=== PATIENT | male | born 1990 | race Hispanic/Latino ===

== ENCOUNTER 2017-11-18 10:47 | Emergency (ER) | payer BC, SELFPAY ==
[2017-11-18] MEDS ORDERED: Lidocaine 1% w/Epinephrine 1:100K 20 ML VIAL ONE (14:07)
[2017-11-18] MEDS ORDERED: Adacel (T-DAP) 0.5 ML VIAL ONE (14:55)
[2017-11-18] MEDS ORDERED: Lidocaine 1% PF 5 ML VIAL ONE (14:55)
[2017-11-18] MEDS ORDERED: cefTRIAXone\\ROCEPHIN 500 MG VIAL ONE (14:55)
== END 2017-11-18 15:11 | disposition home or self-care (01) ==
LOC: ERS 10:47
DX: L05.01 Pilonidal cyst with abscess (principal); J45.909 Unspecified asthma, uncomplicated; E78.00 Pure hypercholesterolemia, unspecified; F31.9 Bipolar disorder, unspecified; F20.9 Schizophrenia, unspecified; F17.210 Nicotine dependence, cigarettes, uncomplicated
CPT/HCPCS: 10081; 87070; 87205; 90471; 90715; 96372; J0696; J2001

== ENCOUNTER 2019-06-28 08:11 | Emergency (ER) | payer SELFPAY ==
--- NOTE | 2019-06-28 09:01 | RAD ---
XR Shoulder Rt 3 View STANDARD History: Right shoulder pain Comparison: None. Findings: No acute fracture or malalignment. Acromioclavicular alignment is normal. Visualized ribs a re intact. Impression: No acute osseous abnormality.
== END 2019-06-28 09:21 | disposition home or self-care (01) ==
LOC: ERS 08:11
DX: M75.91 Shoulder lesion, unspecified, right shoulder (principal); J45.909 Unspecified asthma, uncomplicated; E78.00 Pure hypercholesterolemia, unspecified; F31.9 Bipolar disorder, unspecified; F20.9 Schizophrenia, unspecified; F17.210 Nicotine dependence, cigarettes, uncomplicated

== ENCOUNTER 2019-08-12 18:19 | Emergency (ER) | payer OTHER, SELFPAY | END 2019-08-12 19:18 | disposition home or self-care (01) | LOC: ERS 18:19 | DX: S83.91XA Sprain of unspecified site of right knee, initial encounter (principal); E78.00 Pure hypercholesterolemia, unspecified; F31.9 Bipolar disorder, unspecified; F17.210 Nicotine dependence, cigarettes, uncomplicated; J45.909 Unspecified asthma, uncomplicated; X50.9XXA Other and unspecified overexertion or strenuous movements or postures, initial encounter | CPT/HCPCS: 99283 ==

== ENCOUNTER 2020-02-22 11:47 | Emergency (ER) | payer SELFPAY ==
--- NOTE | 2020-02-22 12:20 | RAD ---
RADIOGRAPH LEFT SHOULDER 3VIEWS: DATE: 02/22/2020 HISTORY: Sudden onset acute left shoulder pain in 29-year-old male FINDINGS: There is no evidence of fracture or dislocation. There is no evidence of periostitis, permeative lesi on, osteolytic lesion, or osteoblastic lesion. The joint spaces are maintained without erosions or significant osteophytes. IMPRESSION: Normal
[2020-02-22] MEDS ORDERED: traMADol HCl 50 MG TAB ONE (12:36)
[2020-02-22] MEDS ORDERED: Cyclobenzaprine 10 MG TAB ONE (12:37)
[2020-02-22] MEDS ORDERED: Naproxen 500 MG TAB ONE (12:37)
== END 2020-02-22 12:45 | disposition home or self-care (01) ==
LOC: ERS 11:47
DX: S46.812A Strain of other muscles, fascia and tendons at shoulder and upper arm level, left arm, initial encounter (principal); S43.402A Unspecified sprain of left shoulder joint, initial encounter; E78.00 Pure hypercholesterolemia, unspecified; F31.9 Bipolar disorder, unspecified; F20.9 Schizophrenia, unspecified; J45.909 Unspecified asthma, uncomplicated; J42 Unspecified chronic bronchitis; F17.210 Nicotine dependence, cigarettes, uncomplicated; X50.0XXA Overexertion from strenuous movement or load, initial encounter

== ENCOUNTER 2024-11-09 12:14 | Emergency (ER) | payer SELFPAY | END 2024-11-09 12:42 | disposition left against medical advice (07) | LOC: ERS 12:14 | DX: Z53.21 Procedure and treatment not carried out due to patient leaving prior to being seen by health care provider (principal) ==